=== PATIENT | female | born 1990 | race Caucasian/White ===

== ENCOUNTER 2016-08-22 05:48 | Day surgery (SDC) | payer OTHER ==
[2016-08-22] MEDS ORDERED: SCOPOLAMINE HYDROBROMIDE 1.5 MG PATCH TD ONE (06:00)
[2016-08-22] MEDS ORDERED: ACETAMINOPHEN 500 MG TAB PO ONE (06:00)
[2016-08-22] MEDS ORDERED: PREGABALIN 150 MG CAP PO ONE (06:00)
[2016-08-22] MEDS ORDERED: CLINDAMYCIN 900 MG/DEXTROSE 50 ML IV ONE (06:00)
[2016-08-22] MEDS ORDERED: LIDOCAINE 1% 5 ML SDV ONE (06:42)
[2016-08-22] MEDS ORDERED: LIDOCAINE 1% 5 ML SDV ID PRN (06:57)
[2016-08-22] MEDS ORDERED: LR 1,000 ML IV ONE (06:57)
[2016-08-22] MEDS ORDERED: BUPIVACAINE/EPI 0.25% 30 ML SDV ONE (06:59)
[2016-08-22] MEDS ORDERED: PROPOFOL/EMULSION 500 MG/50 ML BOTTLE IV ONE (07:08)
[2016-08-22] MEDS ORDERED: fentaNYL 250 MCG/5 ML INJ ONE (07:08)
[2016-08-22] MEDS ORDERED: GLYCOPYRROLATE 0.2 MG/1 ML VIAL ONE ×2 (07:13→09:36)
[2016-08-22] MEDS ORDERED: METOCLOPRAMIDE 10 MG/2 ML VIAL ONE (07:13)
[2016-08-22] MEDS ORDERED: ROCURONIUM 50 MG/5 ML VIAL ONE (07:13)
[2016-08-22] MEDS ORDERED: LIDOCAINE 2% 5 ML SDV ONE (07:13)
[2016-08-22] MEDS ORDERED: KETOROLAC 30 MG/1 ML SDV ONE (07:13)
[2016-08-22] MEDS ORDERED: ONDANSETRON 4 MG/2 ML VIAL ONE (07:13)
[2016-08-22] MEDS ORDERED: MIDAZOLAM 2 MG/2 ML VIAL ONE (07:15)
[2016-08-22] MEDS ORDERED: DEXMEDETOMIDINE HCL 200 MCG in NS 50 ML IV ONE (07:30)
[2016-08-22] MEDS ORDERED: DIAZEPAM 10 MG/2 ML SYR ONE (08:07)
[2016-08-22] MEDS ORDERED: epHEDrine SULFATE 10 MG/ML SYR ONE (09:34)
[2016-08-22] MEDS ORDERED: NEOSTIGMINE METHYLSULFATE 5 MG/5 ML SYR ONE (09:36)
[2016-08-22] MEDS ORDERED: fentaNYL 100 MCG/2 ML INJ ONE ×2 (10:26→11:06)
[2016-08-22] MEDS ORDERED: OXYCODONE/APAP 5/325 TAB PO PRN (11:19)
[2016-08-22] MEDS ORDERED: OXYCODONE/APAP 5/325 TAB ONE (11:30)
== END 2016-08-22 12:45 | disposition home or self-care (01) ==
LOC: FSGY 05:48
PROVIDERS: ATTEND Orthopaedic Surgery Sports Medicine
PROC: 0SQB4ZZ Repair Left Hip Joint, Percutaneous Endoscopic Approach (ICD-10-PCS; principal; 2016-08-22 07:41)
DX: M25.852 Other specified joint disorders, left hip (principal)
CPT/HCPCS: 29914; 76001; C1769; C1713; J0171; J1885; J2250; J2405; J2704; J2710; J2765; J3010